=== PATIENT | male | born 1955 | race Caucasian/White ===

== ENCOUNTER → 2019-12-07 15:46 | Outpatient (CLI) | payer OTHER, SELFPAY ==
--- NOTE | 2019-12-07 15:49 | DI.RAD.S_ITS ---
PROCEDURE: XR ACUTE ABDOMEN SERIES INDICATIONS: abdominal pain TECHNIQUE: One view chest and two views of the abdomen were acquired. COMPARISON: None. FINDINGS: Surgical changes and devices: None. Chest: Lungs are clear. Heart size is normal. No pleural effusions. No pneumoperitoneum. Abdomen: Bowel gas pattern is normal. There is mild/moderate stool predominantly within the right colon. No suspicious calcifications. Visualized solid organ contours appear normal. Bones: No suspicious bony lesions. Dextrocurvature of the spine and diffuse spondylosis. Bilateral hip degeneration and spurring IMPRESSION: No specific evidence of bowel obstruction seen at this time although if the patient's symptoms do not improve, continued surveillance with abdominal series radiographs could be performed. Dictated by: Stephan Velasquez M.D. on 12/07/2019 at 16:41 Approved by: Stephan Velasquez M.D. on 12/07/2019 at 16:42
== END ==
PROVIDERS: PCP Internal Medicine; Referring Provider Internal Medicine; Visit Provider Internal Medicine
DX: R10.9 Unspecified abdominal pain (principal); M16.0 Bilateral primary osteoarthritis of hip; M47.819 Spondylosis without myelopathy or radiculopathy, site unspecified
CPT/HCPCS: 74022

== ENCOUNTER → 2019-12-09 07:59 | Outpatient (CLI) | payer OTHER, SELFPAY ==
[2019-12-09 09:02] LABS: Add Manual Diff / Slide Review NO; Basophils Absolute Auto 0 /uL (0-100); Basophils Percent Auto 0.7 % (0-2); Eosinophils Absolute Auto 100 /uL (0-450); Eosinophils Percent Auto 2.2 % (2-4); Hematocrit 44.7 % (41-53); Hemoglobin 15.6 g/dL (13.5-17.5); Lymphocytes Absolute Auto 1800 /uL (1100-4500); Lymphocytes Percent Auto 28.2 % (25-40); Mean Corpuscular HGB Conc 34.8 % (30-36); Mean Corpuscular Hemoglobin 31.6 PG (26-34); Mean Corpuscular Volume 90.8 fL (80-100); Monocytes Absolute Auto 500 /uL (0-900); Monocytes Percent Auto 7.4 % (3-14); Neutrophils Absolute Auto 3800 /uL (1500-7000); Neutrophils Percent Auto 61.5 % (50-75); Platelet Count 221 X10^3/uL (150-400); Red Blood Cell Count 4.93 X10^6/uL (4.5-5.9); Red Cell Distribution Width 14.3 % (11.6-14.8); White Blood Cell Count 6.2 X10^3/uL (4.5-11.0)
[2019-12-09 09:29] LABS: Alanine Aminotransferase 17 IU/L (<50); Albumin 4.2 g/dL (3.5-5.0); Albumin Globulin Ratio 1.4 (1.0-2.8); Alkaline Phosphatase 74 U/L (38-126); Aspartate Aminotransferase 23 IU/L (17-59); Bilirubin Total 0.7 mg/dL (0.2-1.3); Blood Urea Nitrogen 21 mg/dL (9-20); Calcium 9.2 mg/dL (8.4-10.2); Carbon Dioxide 26 mmol/L (22-32); Chloride 103 mmol/L (98-107); Cholesterol 175 mg/dL (140-199); Estimated Glomerular Filt Rate > 60.0 mL/min (>60); Globulin 3.1 g/dL (1.7-4.1); Glucose 218 mg/dL (80-110); HDL Cholesterol 26 mg/dL (40-60); HEMOLYSIS 19 (0-50); LDL Cholesterol Calculated 104 mg/dL (<100); Potassium 4.1 mmol/L (3.4-5.1); Sodium 139 mmol/L (137-145); Total Protein 7.3 g/dL (6.3-8.2); Triglycerides 227 mg/dL (35-150)
[2019-12-09 09:36] LABS: Erythrocyte Sedimentation Rate 8 MM/HR (0-15)
[2019-12-09 09:52] LABS: Prostate Specific Antigen Scrn 0.295 ng/mL (0.1-4.0)
[2019-12-09 09:55] LABS: TSH w/ Reflex to FT4 2.21 uIU/mL (0.47-4.68)
== END ==
PROVIDERS: PCP Internal Medicine; Referring Provider Internal Medicine; Visit Provider Internal Medicine
DX: Z13.6 Encounter for screening for cardiovascular disorders (principal); Z13.1 Encounter for screening for diabetes mellitus; Z13.220 Encounter for screening for lipoid disorders; Z12.5 Encounter for screening for malignant neoplasm of prostate; R10.9 Unspecified abdominal pain
CPT/HCPCS: 36415; 80053; 80061; 84443; 85025; 85651; 86140; G0103

== ENCOUNTER → 2019-12-21 15:42 | Outpatient (CLI) | payer OTHER, SELFPAY ==
[2019-12-21 17:48] LABS: Hemoglobin A1C% w Est Avg Glu 8.3 % (4.0-6.0)
[2019-12-21 18:29] LABS: BUN Creatinine Ratio 26.4 (6-22); Blood Urea Nitrogen 24 mg/dL (9-20); Calcium 9.7 mg/dL (8.4-10.2); Carbon Dioxide 27 mmol/L (22-32); Chloride 104 mmol/L (98-107); Estimated Glomerular Filt Rate > 60.0 mL/min (>60); Glucose 121 mg/dL (80-110); HEMOLYSIS < 15 (0-50); Potassium 4.1 mmol/L (3.4-5.1); Sodium 140 mmol/L (137-145)
== END ==
PROVIDERS: PCP Internal Medicine; Referring Provider Internal Medicine; Visit Provider Internal Medicine
DX: E11.9 Type 2 diabetes mellitus without complications (principal); I10 Essential (primary) hypertension
CPT/HCPCS: 36415; 80048; 83036

== ENCOUNTER → 2020-01-02 13:50 | Outpatient (CLI) | payer OTHER, SELFPAY ==
--- NOTE | 2020-01-02 14:04 | DI.CT.S_ITS ---
PROCEDURE: CT ABDOMEN PELVIS W CON INDICATIONS: abd wall mass TECHNIQUE: After the administration of oral and intravenous contrast, 5 mm thick sections acquired from the diaphragms to the symphysis. 5 mm thick coronal and sagittal reformats were performed. For radiation dose reduction, the following was used: automated exposure control, adjustment of mA and/or kV according to patient size. COMPARISON: None. FINDINGS: Image quality: Excellent. ABDOMEN: Lung bases: Lung bases are clear. Heart size is normal. Solid organs: Liver is normal in size and enhancement. Gallbladder is mildly contracted. Biliary system is non-dilated. Pancreas enhances normally. Spleen is normal in size and enhancement. No adrenal nodules. Kidneys are normal in size and enhancement, without hydronephrosis. Peritoneum and bowel: Stomach, small bowel, and colon loops are normal in caliber and wall thickness. No free fluid or air. Nodes and vessels: No retroperitoneal or mesenteric adenopathy. Aorta and inferior vena cava are normal in caliber. Miscellaneous: No ventral hernias. PELVIS: Genitourinary: Bladder wall thickness is normal. Miscellaneous: No inguinal adenopathy. There is a large fat containing left and a small fat containing right inguinal hernia. Bones: No suspicious bony lesions. No vertebral body compression fractures. IMPRESSION: 1. Bilateral fat-containing inguinal hernias. 2. No acute intra-abdominal findings. The appendix is not visualized; however there are no ancillary findings to suggest acute appendicitis. Dictated by: Naty Casper M.D. on 01/02/2020 at 15:48 Approved by: Naty Casper M.D. on 01/02/2020 at 15:51
== END ==
PROVIDERS: PCP Internal Medicine; Referring Provider Internal Medicine; Visit Provider Internal Medicine
DX: R22.2 Localized swelling, mass and lump, trunk (principal); K40.20 Bilateral inguinal hernia, without obstruction or gangrene, not specified as recurrent
CPT/HCPCS: 74177; Q9967

== ENCOUNTER → 2020-03-05 17:31 | Outpatient (CLI) | payer OTHER, SELFPAY ==
[2020-03-05 18:21] LABS: Hemoglobin A1C% w Est Avg Glu 6.6 % (4.0-6.0)
== END ==
PROVIDERS: PCP Internal Medicine; Referring Provider Internal Medicine; Visit Provider Internal Medicine
DX: Z01.818 Encounter for other preprocedural examination (principal); E11.9 Type 2 diabetes mellitus without complications
CPT/HCPCS: 36415; 83036

== ENCOUNTER 2020-05-24 10:32 | Emergency (ER) | payer OTHER, SELFPAY ==
[2020-05-24 10:35] VITALS: BP 179/86; PULSE 81; RESP 16; TEMP 36.4; O2SAT 100
--- NOTE | 2020-05-24 11:24 | DI.US.S_ITS ---
PROCEDURE: US PERIPH VENOUS LOW EXTREM RT INDICATIONS: sp right total knee 2 1/2 weeks ago. Now w/ R lower leg pain TECHNIQUE: Real-time imaging, as well as color and pulse Doppler interrogation, were performed of the lower extremity deep veins from the inguinal ligament to the popliteal fossa. COMPARISON: None. FINDINGS: The common femoral, femoral and popliteal veins are normally compressible, and free of intraluminal thrombus. Color and pulse Doppler demonstrate normal phasic intraluminal flow. There is normal augmentation response to distal compression maneuver. There is a 10 x 5 cm complex fluid collection, although unable to entirely measured due to size. IMPRESSION: No evidence of deep venous thrombosis 10 x 5 cm complex fluid collection presumably hematoma superior/medial to the incision. The margins were marked on the skin with a pen. Dictated by: Stephan Velasquez M.D. on 05/24/2020 at 12:52 Approved by: Stephan Velasquez M.D. on 05/24/2020 at 12:53
[2020-05-24 12:24] VITALS: PULSE 72
--- NOTE | 2020-05-24 12:25 | ED_ITS ---
HPI - Extremity Problem General Chief complaint: Extremity Problem,Nontraumatic Stated complaint: check for DVT, post op knee replacement Time Seen by Provider: 05/24/20 12:25 Source: patient Mode of arrival: Ambulatory Limitations: no limitations History of Present Illness HPI Narrative: The patient has 2 weeks right knee repair surgery. He is in physical therapy. After initial postop recovery the same tonight, he has had increased discomfort the last 2 days. He has had right knee edema throughout the postop course. With edema and there is no erythema or warmth. He is under care physical therapy, with the sudden increased discomfort his physical therapist recommended an ultrasound. The patient has no edema down the calf, or his right foot. His no numbness or weakness in his feet. He denies chest pain, dyspnea, or hemoptysis. He has no history of DVT or PE. He is on medications for type 2 diabetes, he has no history of cardiac or respiratory disease. Related Data Home Medications Medication Instructions Recorded Confirmed aspirin 325 mg PO PRN PRN #0 04/13/17 03/12/20 calcium carbonate 300 mg (750 mg) 900 mg PO BEDTIME tab 12/07/19 03/12/20 chewable tablet Previous Rx's Medication Instructions Recorded metformin 500 mg tablet 500 mg PO BID #180 tab 03/12/20 Allergies Allergy/AdvReac Type Severity Reaction Status Date / Time No Known Drug Allergies Allergy Verified 05/24/20 10:40 Review of Systems Constitutional Constitutional: Reports system reviewed and no additional complaints, except as documented, Denies body ache(s), Denies chills, Denies fever(s) and Denies frequent falls ENT Ears, Nose, Mouth, and Throat: Denies sinus pressure and Denies sore throat Cardiovascular Cardiovascular: Denies chest pain, Denies rapid heart rate, Denies lightheadedness and Denies dyspnea Respiratory Respiratory: Denies cough and Denies dyspnea Comments: No hemoptysis. Gastrointestinal Gastrointestinal: Denies abdominal pain, Denies diarrhea and Denies nausea Musculoskeletal Musculoskeletal: Denies numbness Comments: Right knee pain and swelling. Integumentary/Breasts Skin/Breast: Denies pruritus, Denies erythema, Denies rash and Reports wounds Comments: Healing right knee surgical site Neurologic Neurologic: Denies behavioral changes, Denies confusion, Denies frequent falls and Denies numbness Psychiatric Psychiatric: Denies behavioral changes and Denies confusion Patient History Medical History (Updated 05/24/20 @ 13:07 by Elton Rojas MD) Allergies (Inactive) Bilateral inguinal hernia (Chronic) Diabetes type 2, controlled (Chronic) Hypertension, essential (Chronic) Osteoarthritis, knee (Chronic) Surgical History (Updated 05/24/20 @ 13:07 by Elton Rojas MD) Anesthesia (Resolved) H/O right knee surgery (Acute) History of arthroscopic knee surgery (Resolved) History of knee surgery (Resolved) Family History Grandfather History of heart disease Grandfather Cancer Social History Smoking Status: Never smoker Smoking Status: Never smoker alcohol intake frequency: 0-2 drinks per day Substance Use Type: marijuana Exam Initial Vital Signs Initial Vital Signs: Vital Signs Temperature 97.6 F 05/24/20 10:35 Pulse Rate 81 05/24/20 10:35 Respiratory Rate 16 05/24/20 10:35 Blood Pressure 179/86 H 05/24/20 10:35 Pulse Oximetry 100 05/24/20 10:35 Resp Effort & Inspection: normal respiratory effort and able to speak in complete sentences Auscultation: clear to auscultation bilaterally, no rales, no rhonchi and no wheezes Cardio Rate: regular rate Rhythm: regular rhythm Heart Sounds: no click, no gallops, no murmurs and no rubs Pulses: normal peripheral pulses Skin General: no rashes or lesions noted, No jaundice and No petechiae Other: Edema to the right knee, surgical site is well healed with no evidence of infection. No rash around the surgical site. Neuro General: patient alert, patient oriented x3, gait normal and no focal motor deficits Speech: speech normal Other: Motor and sensory to both lower extremities is intact. Extrem Other: Focal edema to the right knee, without erythema or warmth. Decreased range of motion. Particularly there is edema in the popliteal fossa. No calf tenderness. Edema is restricted to the right knee and popliteal fossa. Dorsalis pedis pulses normal bilaterally. Course Course Course Narrative: Evaluation is consistent with a postop hematoma, there is no evidence DVT. This findings explained to the patient and his . They are pleased with the outcome. Orders Ordered: ED Orders 05/24/20 11:24 US periph venous low extrem rt Stat Vital Signs Vital signs: Vital Signs - 8 hr 05/24/20 10:35 05/24/20 12:24 Temperature 97.6 F Pulse Rate 81 Pulse Rate [Right Dorsalis Pedis] 72 Respiratory Rate 16 Blood Pressure 179/86 H Pulse Oximetry 100 MDM - Extremity (Nontraumatic) Imaging Data Right lower extremity Doppler:: Radiologist's Impression: [address] [address] Ultrasound Report Signed Patient: Wolf Sarabia LMR#: [id number] : [id number]:[id number] Age/Sex: 64 / MDate of Service: 05/24/20 Loc: ED Accession Number: [id number] Procedure: US periph venous low extrem rt Ordering Provider: Elton Rojas MD PROCEDURE: US PERIPH VENOUS LOW EXTREM RT INDICATIONS: sp right total knee 2 1/2 weeks ago. Now w/ R lower leg pain TECHNIQUE: Real-time imaging, as well as color and pulse Doppler interrogation, were performed of the lower extremity deep veins from the inguinal ligament to the popliteal fossa. COMPARISON: None. FINDINGS: The common femoral, femoral and popliteal veins are normally compressible, and free of intraluminal thrombus. Color and pulse Doppler demonstrate normal phasic intraluminal flow. There is normal augmentation response to distal compression maneuver. There is a 10 x 5 cm complex fluid collection, although unable to entirely geovanna ured due to size. IMPRESSION: No evidence of deep venous thrombosis 10 x 5 cm complex fluid collection presumably hematoma superior/medial to the incision. The margins were marked on the skin with a pen. Dictated by: Stephan Velasquez M.D. on 05/24/2020 at 12:52 Approved by: Stephan Velasquez M.D. on 05/24/2020 at 12:53 Discharge Plan Departure Patient Disposition: Home Clinical Impression: Postoperative hematoma Qualifiers: Surgical complication system/body Area: subcutaneous tissue Procedure type: non-dermatologic Qualified Code(s): L76.32 - Postprocedural hematoma of skin and subcutaneous tissue following other procedure Instructions: DI for Hematoma (Bruise) Activity Restrictions/Additional Instructions: Tylenol or Advil as needed for pain. Continue her postop care with physical therapy. Follow-up with your surgeon as planned. Return the ER if he develops chest pain, problems breathing, or if you cough up blood. Prescriptions: No Action aspirin 325 MG tablet 325 mg PO PRN PRNQty: 0 RF: 0 calcium carbonate [Tums] 300 mg (750 mg) tablet,chewable 900 mg PO BEDTIME RF: 0 metformin 500 mg tablet 500 mg PO BID Qty: 180 RF: 3 Referrals: González Joseph MD [Primary Care Provider] -
[2020-05-24] MEDS: IBUPROFEN 400 MG TABLET PO (13:10)
== END 2020-05-24 13:26 | disposition home or self-care (01) ==
PROVIDERS: Emergency Provider Emergency Medicine; PCP Internal Medicine
DX: L76.32 Postprocedural hematoma of skin and subcutaneous tissue following other procedure (principal); E11.9 Type 2 diabetes mellitus without complications
CPT/HCPCS: 93971; 99283

== ENCOUNTER → 2021-01-11 08:27 | Outpatient (CLI) | payer OTHER, SELFPAY ==
[2021-01-11 09:06] LABS: HEMOLYSIS < 15 (0-50)
[2021-01-11 09:10] LABS: Hemoglobin A1C% w Est Avg Glu 6.1 % (4.0-6.0)
[2021-01-11 09:13] LABS: Alanine Aminotransferase 11 IU/L (<50); Albumin 4.1 g/dL (3.5-5.0); Albumin Globulin Ratio 1.4 (1.0-2.8); Alkaline Phosphatase 66 U/L (38-126); Aspartate Aminotransferase 23 IU/L (17-59); BUN Creatinine Ratio 24.2 (6-22); Bilirubin Total 0.5 mg/dL (0.2-1.3); Blood Urea Nitrogen 22 mg/dL (9-20); Calcium 9.6 mg/dL (8.4-10.2); Carbon Dioxide 33 mmol/L (22-32); Chloride 102 mmol/L (98-107); Cholesterol 172 mg/dL (140-199); Estimated Glomerular Filt Rate > 60.0 mL/min (>60); Glucose 122 mg/dL (80-110); HDL Cholesterol 35 mg/dL (40-60); LDL Cholesterol Calculated 100 mg/dL (<100); Potassium 4.5 mmol/L (3.4-5.1); Sodium 139 mmol/L (137-145); Total Protein 7.1 g/dL (6.3-8.2); Triglycerides 187 mg/dL (35-150)
[2021-01-12 13:41] LABS: Prostate Specific Antigen Scrn 0.254 ng/mL (0.1-4.0)
== END ==
PROVIDERS: PCP Internal Medicine; Referring Provider Internal Medicine; Visit Provider Internal Medicine
DX: E11.9 Type 2 diabetes mellitus without complications (principal); I10 Essential (primary) hypertension; Z13.220 Encounter for screening for lipoid disorders; Z12.5 Encounter for screening for malignant neoplasm of prostate
CPT/HCPCS: 36415; 80053; 80061; 83036; G0103

== ENCOUNTER → 2022-05-23 08:04 | Outpatient (CLI) | payer OTHER, SELFPAY ==
[2022-05-23 09:37] LABS: Hemoglobin A1C% w Est Avg Glu 9.2 % (4.0-6.0)
[2022-05-23 09:44] LABS: Alanine Aminotransferase 47 IU/L (<50); Albumin 3.9 g/dL (3.5-5.0); Albumin Globulin Ratio 1.3 (1.0-2.8); Alkaline Phosphatase 61 U/L (38-126); Aspartate Aminotransferase 50 IU/L (17-59); BUN Creatinine Ratio 22.5 (6-22); Bilirubin Total 0.8 mg/dL (0.2-1.3); Blood Urea Nitrogen 18 mg/dL (9-20); Calcium 8.9 mg/dL (8.4-10.2); Carbon Dioxide 27 mmol/L (22-32); Chloride 100 mmol/L (98-107); Estimated Glomerular Filt Rate > 60 mL/min (>60); Globulin 2.9 g/dL (1.7-4.1); Glucose 200 mg/dL (80-110); HEMOLYSIS 36 (0-50); Potassium 4.5 mmol/L (3.4-5.1); Sodium 136 mmol/L (137-145); Total Protein 6.8 g/dL (6.3-8.2)
== END ==
PROVIDERS: PCP Internal Medicine; Referring Provider Internal Medicine; Visit Provider Internal Medicine
DX: E11.9 Type 2 diabetes mellitus without complications (principal); I10 Essential (primary) hypertension
CPT/HCPCS: 36415; 80053; 83036

== ENCOUNTER → 2023-11-13 07:46 | Outpatient (CLI) | payer OTHER, SELFPAY ==
[2023-11-13 09:32] LABS: Creatinine Urine Random 83.4 mg/dL
[2023-11-13 09:35] LABS: Alanine Aminotransferase 28 IU/L (<50); Albumin Globulin Ratio 1.3 (1.0-2.8); Alkaline Phosphatase 76 U/L (38-126); Aspartate Aminotransferase 23 IU/L (17-59); BUN Creatinine Ratio 27.6 (6-22); Bilirubin Total 0.6 mg/dL (0.2-1.3); Blood Urea Nitrogen 21 mg/dL (9-20); Carbon Dioxide 29 mmol/L (22-32); Chloride 101 mmol/L (98-107); Cholesterol 206 mg/dL (140-199); Estimated Glomerular Filt Rate > 60 mL/min (>60); Globulin 3.1 g/dL (1.7-4.1); Glucose 267 mg/dL (80-110); HDL Cholesterol 29 mg/dL (40-60); HEMOLYSIS < 15 (0-50); LDL Cholesterol Calculated 105 mg/dL (<100); Potassium 4.3 mmol/L (3.4-5.1); Sodium 136 mmol/L (137-145); Total Protein 7.1 g/dL (6.3-8.2); Triglycerides 358 mg/dL (35-150)
[2023-11-13 09:35] LABS: Microalbumi Creatinin Ratio Ur 9.5 ug/mg CR (<30); Microalbumin Urine Random 0.8 mg/dL (0-1.6)
== END ==
PROVIDERS: PCP Internal Medicine; Referring Provider Internal Medicine; Visit Provider Internal Medicine
DX: E11.65 Type 2 diabetes mellitus with hyperglycemia (principal)
CPT/HCPCS: 36415; 80053; 80061; 82043; 82570; 83036

== ENCOUNTER → 2024-01-06 15:28 | Outpatient (CLI) | payer OTHER, SELFPAY ==
--- NOTE | 2024-01-12 09:36 | DIAB.MNT ---
Initial Diabetes Medical Nutrition Therapy Assessment Name: Wolf Sarabia Date: 01/06/24 Time: 330-636p Dx: Type II Diabetes Pat presents for initial Dm visit. Diagnosed three years ago. Dm FH of maternal grandmother. States he has made changes to his diet, but also reports high intake of fruit as a result. Overall feels diabetes is very inconvenient due to health visits and diet changes. Reports polydipsia and polyuria Reports wanting to know more about nutrition. States he is a fussy eater with limited veggie options, though did report liking green beans, salad, raw carrots and celery. Has not had a dilated eye exam in over 10 years. No recent dental. Does not check feet. No previous dm education. 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 Diet Recall: 530a: bagel with cheese and diet coke OR eng muff x 2 with ham and cheese OR white bread with pb x2 930a: banana, 1/2c berries, 10 crackers 1p: turkey sandwich, 2oz chips, orange, tomatoes 5p: steak with baked potato with butter, 2 pieces divehi roll, green beans OR spaghetti x 2c with meat 830p: nuts or 1-2oz pretzels or 1c popcorn 48-64oz water, 1 diet coke Anthropometrics: Ht: 6'1 Wt: 292# 11/2023 Physical Activity: walk 30 min or bike 60 min q day with dogs Self-Monitoring Blood Glucose: None, no supplies. Stage of change precontemplative. Diabetes Medications: 1000mg Metformin BID Pertinent Labs: hgA1c: 6.1% 01/2021 9.2% 05/2022 12.1% 11/2023 Past Medical History: (Last Updated 06/11/22 @ 10:52 by González Joseph MD) Allergies Youth Bilateral inguinal hernia Diabetes type 2, controlled Diabetes type 2, uncontrolled Hypertension, essential Osteoarthritis, knee Nutrition Rx: Carbohydrates: Meal:45g Snack:15-30g Nutrition Diagnosis: - Excessive CHO intake r/t nutrition knowledge deficit aeb diet recall and pt report - Self monitoring deficit r/t stage of change and knowledge deficit aeb pt report of no SMBG Intervention: This participant was very receptive. Provided appropriate educational handouts. Discussed the following topics: Completed intake assessment. Discussed barriers to care. Pathophysiology of T2DM HgA1c, its correlation to blood glucose numbers, and rationale for goal Importance of self-monitoring, how often, and when to check. Plate Method, impact of macronutrients on blood sugar, meal timing, carbohydrate counting, pairing macronutrients and spreading out carbohydrates for better blood glucose management Recommended servings for carbohydrates at meals and snacks Heart health nutrition Brainstormed appropriate meal plan based on food preferences Role of physical activity and following provider guidelines for safety Created SMART goals for patient self-care and success. Goals: Pair CHO and pro for snacks Keep carbs at 45g at meals Add more veggies for satiety Follow-up: [facility] follow-up in 2-3 weeks recommended. Pat would like to push our visit out farther after next PCP visit. Will see him again in early February. Jennie Alamo RDN, CDCES Certified Diabetes Care and Technical Project Coordinator P: [phone] Thank you for this referral
== END ==
PROVIDERS: PCP Internal Medicine; Referring Provider Internal Medicine; Visit Provider Internal Medicine
DX: E11.9 Type 2 diabetes mellitus without complications (principal); Z71.3 Dietary counseling and surveillance
CPT/HCPCS: 97802

== ENCOUNTER → 2024-02-03 16:06 | Outpatient (CLI) | payer OTHER, SELFPAY ==
[2024-02-03 17:51] LABS: Hemoglobin A1C% w Est Avg Glu 9.2 % (4.0-6.0)
[2024-02-03 18:23] LABS: BUN Creatinine Ratio 20.2 (6-22); Blood Urea Nitrogen 21 mg/dL (9-20); Calcium 9.2 mg/dL (8.4-10.2); Carbon Dioxide 32 mmol/L (22-32); Chloride 103 mmol/L (98-107); Estimated Glomerular Filt Rate > 60 mL/min (>60); Glucose 142 mg/dL (80-110); HEMOLYSIS < 15 (0-50); Potassium 4.6 mmol/L (3.4-5.1); Sodium 139 mmol/L (137-145)
== END ==
PROVIDERS: PCP Internal Medicine; Referring Provider Internal Medicine; Visit Provider Internal Medicine
DX: I10 Essential (primary) hypertension (principal)
CPT/HCPCS: 36415; 80048; 83036

== ENCOUNTER → 2024-02-11 15:11 | Outpatient (CLI) | payer OTHER, SELFPAY ==
--- NOTE | 2024-03-08 15:11 | DIAB.MNTFU ---
Follow-up Diabetes Medical Nutrition Therapy Assessment Name: Wolf Sarabia Date: 02/11/24 Time: 335-415p Dx: Type II Diabetes Pat presents for DM follow-up Reports reduced chip intake, cut out bagels. Diet recall indicates smaller CHO portions. Has been reading food labels, however for percent daily value. More recently looking more at grams correctly. Gained some wt with HS snack portions per report. Diet recall: 530a: eng muff x 1/5, pb or cheese and ham 930a: cheese, sf jello, 6-8 crackers OR berres 1p left overs OR sandwich with one serving of chips and carrots 5p: salad and 3+ pizza OR pasta 1-1.5c with burger and salad, steak with 1 sm potato and green beans 830p: nuts Anthropometrics: Ht: 6'1 Wt: 292# 11/2023 Physical Activity: bike 60 min q day with dogs Self-Monitoring Blood Glucose: None, no supplies. Stage of change precontemplative. wants to discuss with PCP first. Diabetes Medications: 1000mg Metformin BID 10mg glipizide BID Pertinent Labs: hgA1c: 6.1% 01/2021 9.2% 05/2022 12.1% 11/2023 9.2% 01/2024 Past Medical History: (Last Updated 06/11/22 @ 10:52 by González Joseph MD) Allergies Youth Bilateral inguinal hernia Diabetes type 2, controlled Diabetes type 2, uncontrolled Hypertension, essential Osteoarthritis, knee Nutrition Rx: Carbohydrates: Meal:45g Snack:15-30g Nutrition Diagnosis: - Excessive CHO intake r/t nutrition knowledge deficit aeb diet recall and pt report- improved - Self monitoring deficit r/t stage of change and knowledge deficit aeb pt report of no SMBG - cont Intervention: This participant was very receptive. Provided appropriate educational handouts. Discussed the following topics: Nutrition review and label reading (percent DV vs grams) SMBG: benefits of checking BG vs hga1c Physical activity Created SMART goals for patient self-care and success. Goals: Pair CHO and pro for snacks - met Keep carbs at 45g at meals- improved Add more veggies for satiety-- met Discuss SMBG with PCP- new Read net CHO in grams- new Limit pizza portions to 2 slices- new Follow-up: RDN CDCES follow-up recommended. Pat would like to f/u after PCP visit in April Jennie Alamo RDN, REZA Certified Diabetes Care and Grease Maker P: [phone] Thank you for this referral
== END ==
PROVIDERS: PCP Internal Medicine; Referring Provider Internal Medicine
DX: E11.9 Type 2 diabetes mellitus without complications (principal); Z79.84 Long term (current) use of oral hypoglycemic drugs; Z71.3 Dietary counseling and surveillance
CPT/HCPCS: 97803

== ENCOUNTER → 2024-05-06 07:59 | Outpatient (CLI) | payer OTHER, SELFPAY ==
[2024-05-06 09:28] LABS: Hemoglobin A1C% w Est Avg Glu 6.1 % (4.0-6.0)
[2024-05-06 09:44] LABS: BUN Creatinine Ratio 23.9 (6-22); Blood Urea Nitrogen 22 mg/dL (9-20); Calcium 9.5 mg/dL (8.4-10.2); Carbon Dioxide 33 mmol/L (22-32); Chloride 104 mmol/L (98-107); Estimated Glomerular Filt Rate > 60 mL/min (>60); Glucose 83 mg/dL (80-110); HEMOLYSIS < 15 (0-50); Sodium 140 mmol/L (137-145)
== END ==
PROVIDERS: PCP Internal Medicine; Referring Provider Internal Medicine; Visit Provider Internal Medicine
DX: I10 Essential (primary) hypertension (principal)
CPT/HCPCS: 36415; 80048; 83036

== ENCOUNTER → 2024-10-28 09:10 | Outpatient (CLI) | payer OTHER, SELFPAY ==
[2024-10-28 11:06] LABS: Alanine Aminotransferase 18 IU/L (<50); Albumin 4.2 g/dL (3.5-5.0); Albumin Globulin Ratio 1.6 (1.0-2.8); Alkaline Phosphatase 63 U/L (38-126); Aspartate Aminotransferase 22 IU/L (17-59); BUN Creatinine Ratio 24.7 (6-22); Bilirubin Total 0.5 mg/dL (0.2-1.3); Blood Urea Nitrogen 22 mg/dL (9-20); Calcium 9.4 mg/dL (8.4-10.2); Carbon Dioxide 27 mmol/L (22-32); Chloride 106 mmol/L (98-107); Cholesterol 194 mg/dL (140-199); Estimated Glomerular Filt Rate > 60 mL/min (>60); Globulin 2.6 g/dL (1.7-4.1); Glucose 127 mg/dL (80-110); HDL Cholesterol 36 mg/dL (40-60); HEMOLYSIS < 15 (0-50); LDL Cholesterol Calculated 130 mg/dL (<100); Potassium 4.5 mmol/L (3.4-5.1); Sodium 138 mmol/L (137-145); Total Protein 6.8 g/dL (6.3-8.2); Triglycerides 142 mg/dL (35-150)
[2024-10-28 11:24] LABS: LDL Cholesterol Direct 110 mg/dL (<100)
[2024-10-28 15:28] LABS: Hemoglobin A1C% w Est Avg Glu 6.2 % (4.0-6.0)
== END ==
PROVIDERS: PCP Internal Medicine; Referring Provider Internal Medicine; Visit Provider Internal Medicine
DX: I10 Essential (primary) hypertension (principal); E78.1 Pure hyperglyceridemia
CPT/HCPCS: 36415; 80053; 80061; 83036; 83721

== ENCOUNTER → 2025-04-28 08:01 | Outpatient (CLI) | payer OTHER, SELFPAY ==
[2025-04-28 09:51] LABS: Alanine Aminotransferase 15 IU/L (<50); Albumin 4.1 g/dL (3.5-5.0); Albumin Globulin Ratio 1.5 (1.0-2.8); Alkaline Phosphatase 69 U/L (38-126); Blood Urea Nitrogen 23 mg/dL (9-20); Calcium 9.8 mg/dL (8.4-10.2); Carbon Dioxide 29 mmol/L (22-32); Chloride 103 mmol/L (98-107); Cholesterol 196 mg/dL (140-199); Estimated Glomerular Filt Rate > 60 mL/min (>60); Globulin 2.8 g/dL (1.7-4.1); Glucose 148 mg/dL (70-99); HDL Cholesterol 30 mg/dL (40-60); HEMOLYSIS < 15 (0-50); Potassium 4.9 mmol/L (3.4-5.1); Sodium 137 mmol/L (137-145); Total Protein 6.9 g/dL (6.3-8.2); Triglycerides 244 mg/dL (35-150)
[2025-04-28 09:52] LABS: Hemoglobin A1C% w Est Avg Glu 6.5 % (4.0-6.0)
[2025-04-28 11:27] LABS: Microalbumi Creatinin Ratio Ur 18.0 ug/mg CR (<30)
== END ==
PROVIDERS: PCP Internal Medicine; Referring Provider Internal Medicine; Visit Provider Internal Medicine
DX: E11.9 Type 2 diabetes mellitus without complications (principal); I10 Essential (primary) hypertension; E66.9 Obesity, unspecified
CPT/HCPCS: 36415; 80053; 80061; 82043; 82570; 83036